=== PATIENT | female | born 1935 | race Caucasian/White ===

== ENCOUNTER → 2018-01-18 | Outpatient (CLI) | payer BC | LOC: M.RAD 01-17 08:50 | DX: N64.52 Nipple discharge (principal); M17.0 Bilateral primary osteoarthritis of knee ==

== ENCOUNTER → 2019-01-25 | Outpatient (CLI) | payer BC | LOC: M.RAD 09:52 | DX: Z12.31 Encounter for screening mammogram for malignant neoplasm of breast (principal) ==

== ENCOUNTER → 2019-02-09 | Outpatient (CLI) | payer BC | LOC: M.RAD 01-31 11:16 | DX: N60.02 Solitary cyst of left breast (principal) ==

== ENCOUNTER → 2020-09-06 | Outpatient (CLI) | payer BC | LOC: M.RAD 10:20 | PROVIDERS: ATTEND Internal Medicine | DX: Z12.31 Encounter for screening mammogram for malignant neoplasm of breast (principal) ==

== ENCOUNTER → 2021-10-14 | Outpatient (CLI) | payer BC | LOC: M.RAD 10:48 | PROVIDERS: ATTEND Internal Medicine | DX: Z12.31 Encounter for screening mammogram for malignant neoplasm of breast (principal) ==